=== PATIENT | female | born 1960 | race Caucasian/White ===

== ENCOUNTER 2017-10-23 05:52 | Inpatient (IN) | payer BC ==
[~2017-10-23] VITALS: Ht 154.9 cm; Wt 66.4 kg
[~2017-10-23 05:52] MED LIST: PREVACID30 M2 PO; SYNTHROID112 MCG PO; ULTRAM50 M1 PO; ZOFRAN ODT8 MG PO
--- NOTE | 2017-10-23 06:05 | NUR ---
PT AMBULATED TO ROOM 9 AND TRIAGED.
--- NOTE | 2017-10-23 06:06 | NUR ---
PT. TO ROOM 9 WITH C/O HAVING LLQ PAIN STARTING APPROX. 1 WEEK AGO. ABD. SOFT WITH + BOWEL SOUNDS. PT. STATES SHE HASM A PMH OF DIVERTICULOSIS.
--- NOTE | 2017-10-23 06:43 | NUR ---
IVF, IV ANTIEMETIC AND IV PAIN MED GIVEN PER MD ORDER.
[2017-10-23 06:49] LABS: HEMATOCRIT 33.5 % (37.0-47.0); HEMOGLOBIN 11.1 g/dl (12.0-16.0); IMMATURE GRANULOCYTES 0.4 % (0.0-1.0); MEAN CELL VOLUME 93.3 fL CALC (80.0-100.0); MEAN CORPUSCULAR HGB 30.9 pG CALC (26.0-32.0); MEAN CORPUSCULAR HGB CONC 33.1 g/L CALC (32.0-36.0); NEUT# 6.32 thou/uL (2.00-7.15); RED BLOOD COUNT 3.59 mill/uL (4.20-5.60)
[2017-10-23 06:59] LABS: ALBUMIN 4.5 g/dL (3.2-5.0); ALKALINE PHOSPHATASE 104 u/l (38-126); AMYLASE 51 u/l (30-110); ANION GAP 17 (6-22 (CALC)); BILIRUBIN, TOTAL 0.2 mg/dL (0.0-1.4); BUN 7 mg/dL (7-17); BUN/CREATININE RATIO 10 (12-20 (CALC)); CARBON DIOXIDE 26 mmol/l (22-30); CHLORIDE 107 mmol/l (95-108); CREATININE 0.7 mg/dL (0.5-1.0); GFR > 60 ML/MIN (>=60 (CALC)); GFR FOR AFR.AMER. > 60 ML/MIN (>=60 (CALC)); LIPASE 58 u/l (23-300); POTASSIUM 4.3 mmol/l (3.5-5.1); SGOT/AST 59 u/l (14-36); SGPT/ALT 59 u/l (9-52); SODIUM 146 mmol/l (137-146); TOTAL PROTEIN 7.3 g/dL (6.3-8.2)
--- NOTE | 2017-10-23 07:10 | NUR ---
REPORT GIVEN TO LARRY HOLMAN.
--- NOTE | 2017-10-23 08:00 | NUR ---
PT PAIN CONTINUES TO BE 6/10, IV FLUIDS INFUSING WITH NO DIFFICULTY. PT AWARE OF PLAN OF CARE AND WAIT TIME. CALL SANCHEZ WITHIN REACH.
[2017-10-23 08:26] LABS: URINE BILIRUBIN - DIPSTICK NEGATIVE (NEGATIVE); URINE BLOOD DIPSTICK NEGATIVE (NEGATIVE); URINE COLOR YELLOW; URINE GLUCOSE - DIPSTICK NEGATIVE (NEGATIVE); URINE KETONE NEGATIVE (NEGATIVE); URINE LEUK ESTERASE NEGATIVE (NEGATIVE); URINE NITRITE - DIPSTICK NEGATIVE (Negative); URINE PROTEIN - DIPSTICK NEGATIVE (NEG-TRACE); URINE UROBILINOGEN - DIPSTICK 0.2 E.U./dL (0.2)
[2017-10-23 08:31] LABS: URINE CLARITY CLEAR
--- NOTE | 2017-10-23 09:13 | NUR ---
SBAR PRINTED TO FLOOR
--- NOTE | 2017-10-23 09:41 | NUR ---
IV CIPRO INFUSING WITH NO DIFFICULTY. PT AWARE OF PENDING ADMISSION AND WAIT TIME. CALL SANCHEZ WITHIN REACH.
--- NOTE | 2017-10-23 09:55 | NUR ---
MS NURSE IN PATIENTS ROOM, WILL CALL BACK FOR REPORT.
--- NOTE | 2017-10-23 10:16 | NUR ---
MS NURSE STILL UNABLE TO TAKE REPORT AT THIS TIME.
--- NOTE | 2017-10-23 10:26 | NUR ---
REPORT CALLED TO RIVER AGUERO.
--- NOTE | 2017-10-23 10:35 | NUR ---
Admission Note Report Given to: LISAANDREAVero Transported by: X Wheelchair Stretcher Transported with: X Nurse Transporter X Patent IV O2 Wax Pumper
--- NOTE | 2017-10-23 10:38 | NUR ---
REPORT RECEIVED FROM ALEYDA IN ED, PT ARRIVED ON UNIT VIA STRETCHER @ [phone], ALERT AND ORIENTED, TRANSFERRED TO BED. ORIENTED TO ROOM AND CALL SANCHEZ AND SETTLED IN BED. C/O NAUSEA AND PAIN, CONCERNS ADDRESSED, WILL CONTINUE TO MONITOR.
[2017-10-23 11:00] VITALS: BP 92/56
[2017-10-23 16:00] VITALS: BP 102/59
--- NOTE | 2017-10-23 19:27 | NUR ---
BEDSIDE REPORT RECEIVED FROM RIVER LIN. PT RESTING IN BED WITH ICE PACK APPLIED TO HEAD FOR HEADAHCE. RESPIRATIONS EVEN AND UNLABORED ON ROOM AIR. PLAN OF CARE DISCUSSED. PT ENCOURAGED TO VERBALIZE CONCERNS. STATES UNDERSTANDING. HAS QUESTIONS ABOUT CHANGES IN MEDICATION INCLUDING PHENERGAN AND ORAL ANALGESICS. SAFETY MEASURES IN PLACE. CALL LIGHT WITHIN REACH.
[2017-10-23 20:15] VITALS: BP 97/63
--- NOTE | 2017-10-24 | NUR ---
PT RESTING IN BED WITH EYES CLOSED; NO SIGNS OF DISTRESS. AWAKENS TO VERBAL STIMULI. DECLINES PAIN AND NAUSEA AT THIS TIME. REQUESTS ONLY AN EXTRA BLANKET. IV FLUIDS INFUSING WITHOUT DIFFICULTY; IV SITE APPEARS HEALTHY. SAFETY MEASURES IN PLACE. CALL LIGHT WITHIN REACH.
--- NOTE | 2017-10-24 04:42 | NUR ---
PT HAS SLEPT THROUGHOUT THE NIGHT WITH NO FURTHER C/O PAIN OR NAUSEA. NO ACUTE CHANGES IN CONDITION NOTED. IV FLUIDS INFUSING WITHOUT DIFFICULTY AND IV ABT ADMINISTERED WITH NO ADVERSE REACTIONS. PT USES CALL LIGHT PRN FOR ASSISTANCE TO BATHROOM. SAFETY MEASURES IN PLACE. CALL LIGHT WITHIN REACH.
[2017-10-24 07:40] VITALS: BP 98/55
--- NOTE | 2017-10-24 08:00 | NUR ---
ASSESSMENT IS COMPLETD: IV SITE IS FREE FROM REDNESS OR EDEMA. BREATH SOUNDS ARE CLEAR,BILATERALLY, NO C/O SOB, HR IS REG,PULSES ARE STRONG X4,ABD IS SOFT WITH ACTIVE BS, ONLY C/O HEADACHE THIS AM.
--- NOTE | 2017-10-24 12:20 | NUR ---
PT IS RELAXING IN BED WITH NO DISRESS NOTED. IV SITE IS FREE FROM REDNESS OR EDEMA.
[2017-10-24] MEDS ORDERED: TRAMADOL HCL50 MG PO (12:58)
[2017-10-24] MEDS ORDERED: METRONIDAZOL500 MG PO (12:58)
[2017-10-24] MEDS ORDERED: FLORASTOR250 M1 PO (12:58)
[2017-10-24] MEDS ORDERED: CIPROFLOXACN500 MG PO (12:58)
[2017-10-24] MEDS ORDERED: ZOFRAN ODT4 MG PO (14:45)
--- NOTE | 2017-10-24 14:51 | NUR ---
Spoke to pt for discharge med education. Pt c/o nausea. Spoke to Cathy, she will include zofran in discharge orders. Reviewed all medications including dosage regimens, timing, and purpose. Pt expressed understanding. Pt had no questions or concerns.
--- NOTE | 2017-10-24 16:20 | NUR ---
PT IS RELAXING IN BED WITH NO DISTRESS NOTED. IV SITE IS FREE FROM REDNESS OR EDEMA.
[2017-10-24 16:41] VITALS: BP 102/54
--- NOTE | 2017-10-24 18:52 | NUR ---
IV SITE DISCONTIENUD CATHETER INTACT. NO REDNESS OR EDEMA. DISCHARGE INSTRUCTIONS GIVEN AND VERBALIZED UNDERSTANDING. FAMILY TOOK SCRIPTS AND DROPPED OFF. Discharge instructions given. Patient verbalizes understanding of same. Discharged in stable condition via Ambulatory to Home with family. All belongings sent with pt.
== END 2017-10-24 19:00 | disposition home or self-care (01) | DRG 392 ==
LOC: ED 05:52 → ED-I 08:24 → ED 09:06 → MS2 09:07
PROVIDERS: Emergency Medicine; ADMIT Internal Medicine; ATTEND Internal Medicine
DX: K57.32 Diverticulitis of large intestine without perforation or abscess without bleeding (principal); E83.42 Hypomagnesemia; E03.9 Hypothyroidism, unspecified; G43.909 Migraine, unspecified, not intractable, without status migrainosus
CPT/HCPCS: Q9967

== ENCOUNTER 2020-04-15 21:00 | Emergency (ER) | payer BC ==
[~2020-04-15] VITALS: Ht 154.9 cm; Wt 68.0 kg
[~2020-04-15 21:00] MED LIST changes: +CIPROFLOXACN500 MG PO; +FLORASTOR250 M1 PO; +METRONIDAZOL500 MG PO; +TRAMADOL HCL50 MG PO; +ZOFRAN ODT4 MG PO
[2020-04-15 21:57] LABS: HEMATOCRIT 33.9 % (37.0-47.0); HEMOGLOBIN 11.1 g/dl (12.0-16.0); IMMATURE GRANULOCYTES 0.3 % (0.0-5.0); MEAN CELL VOLUME 92.9 fL CALC (80.0-100.0); MEAN CORPUSCULAR HGB 30.4 pG CALC (26.0-32.0); MEAN CORPUSCULAR HGB CONC 32.7 g/dL CAL (32.0-36.0); NEUT# 7.73 thou/uL (2.00-7.15); RED BLOOD COUNT 3.65 mill/uL (4.20-5.60); RED CELL DISTRI WIDTH 12.9 % (11.5-15.5)
[2020-04-15 21:58] LABS: URINE BILIRUBIN - DIPSTICK NEGATIVE (NEGATIVE); URINE BLOOD DIPSTICK TRACE-INTACT (NEGATIVE); URINE COLOR YELLOW; URINE GLUCOSE - DIPSTICK NEGATIVE (NEGATIVE); URINE KETONE NEGATIVE (NEGATIVE); URINE LEUK ESTERASE NEGATIVE (NEGATIVE); URINE NITRITE - DIPSTICK NEGATIVE (Negative); URINE PROTEIN - DIPSTICK NEGATIVE (NEG-TRACE); URINE UROBILINOGEN - DIPSTICK 0.2 E.U./dL (0.2)
[2020-04-15 22:10] LABS: ALBUMIN 4.2 g/dL (3.2-5.0); ALKALINE PHOSPHATASE 106 u/l (38-126); AMYLASE 57 u/l (30-110); ANION GAP 10 (6-22 (CALC)); BUN 10 mg/dL (7-17); BUN/CREATININE RATIO 15 (12-20 (CALC)); CARBON DIOXIDE 26 mmol/l (22-30); CHLORIDE 106 mmol/l (95-108); CREATININE 0.7 mg/dL (0.5-1.0); GFR > 60 ML/MIN (>=60 (CALC)); GFR FOR AFR.AMER. > 60 ML/MIN (>=60 (CALC)); LIPASE 46 u/l (23-300); POTASSIUM 3.7 mmol/l (3.5-5.1); SGOT/AST 37 u/l (14-36); SODIUM 139 mmol/l (137-146); TOTAL PROTEIN 7.1 g/dL (6.3-8.2)
[2020-04-15 22:11] LABS: BILIRUBIN, TOTAL 0.4 mg/dL (0.0-1.4)
[2020-04-15 23:11] VITALS: BP 121/69
[2020-04-15] MEDS ORDERED: MAGNESIUM296 ML/BTL PO (23:26)
[2020-04-15] MEDS ORDERED: MIRALAX3350 N1 PO (23:26)
== END 2020-04-15 23:40 | disposition home or self-care (01) | DRG 392 ==
LOC: ED 21:00
PROVIDERS: Family Medicine
DX: K59.00 Constipation, unspecified (principal)

== ENCOUNTER 2021-05-01 21:42 | Emergency (ER) | payer BC ==
[~2021-05-01] VITALS: Ht 154.9 cm; Wt 68.0 kg
[~2021-05-01 21:42] MED LIST changes: +MAGNESIUM296 ML/BTL PO; +MIRALAX3350 N1 PO
[2021-05-02 00:17] LABS: ALBUMIN 4.6 g/dL (3.2-5.0); ALKALINE PHOSPHATASE 82 u/l (38-126); AMYLASE 62 u/l (30-110); ANION GAP 11 (6-22 (CALC)); BILIRUBIN, TOTAL 0.5 mg/dL (0.0-1.4); BUN 18 mg/dL (7-17); BUN/CREATININE RATIO 22 (12-20 (CALC)); CHLORIDE 100 mmol/l (95-108); CREATININE 0.8 mg/dL (0.5-1.0); GFR > 60 ML/MIN (>=60 (CALC)); GFR FOR AFR.AMER. > 60 ML/MIN (>=60 (CALC)); SGOT/AST 23 u/l (14-36); SODIUM 140 mmol/l (137-146); TOTAL PROTEIN 7.6 g/dL (6.3-8.2)
[2021-05-02 00:18] LABS: D-DIMER 0.33 mg/L (0.19-0.60)
[2021-05-02 00:20] LABS: HEMATOCRIT 42.2 % (37.0-47.0); HEMOGLOBIN 13.6 g/dl (12.0-16.0); IMMATURE GRANULOCYTES 0.6 % (0.0-5.0); MEAN CELL VOLUME 95.5 fL CALC (80.0-100.0); MEAN CORPUSCULAR HGB 30.8 pG CALC (26.0-32.0); MEAN CORPUSCULAR HGB CONC 32.2 g/dL CAL (32.0-36.0); NEUT# 10.12 thou/uL (2.00-7.15); RED BLOOD COUNT 4.42 mill/uL (4.20-5.60); RED CELL DISTRI WIDTH 12.9 % (11.5-15.5)
[2021-05-02 00:24] LABS: CARBON DIOXIDE 33 mmol/l (22-30)
[2021-05-02 00:29] LABS: MYOGLOBIN 26 ng/mL (0 - 62)
[2021-05-02 00:32] LABS: ACT PARTIAL THROMBO TIME 20.4 SECONDS (20.0-32.5); INTERNATIONAL NORMALIZED RATIO 0.9 RATIO (0.7-1.3); PROTHROMBIN TIME 9.4 SECONDS (9.0-12.5)
[2021-05-02 01:36] VITALS: BP 120/75
== END 2021-05-02 01:38 | disposition home or self-care (01) | DRG 179 ==
LOC: ED 21:42
PROVIDERS: Family Medicine
DX: U07.1 COVID-19 (principal)

== ENCOUNTER 2022-05-16 13:30 | Emergency (ER) | payer BC ==
[~2022-05-16] VITALS: Ht 154.9 cm; Wt 68.1 kg
[2022-05-16 13:58] VITALS: BP 149/70
[2022-05-16 14:00] VITALS: BP 156/70
[2022-05-16 14:31] VITALS: BP 120/80
[2022-05-16 15:03] LABS: HEMATOCRIT 37.1 % (37.0-47.0); HEMOGLOBIN 12.6 g/dl (12.0-16.0); IMMATURE GRANULOCYTES 0.1 % (0.0-5.0); MEAN CELL VOLUME 90.9 fL CALC (80.0-100.0); MEAN CORPUSCULAR HGB 30.9 pG CALC (26.0-32.0); NEUT# 7.57 thou/uL (2.00-7.15); RED BLOOD COUNT 4.08 mill/uL (4.20-5.60); RED CELL DISTRI WIDTH 13.2 % (11.5-15.5)
[2022-05-16 15:09] LABS: GFR FOR AFR.AMER. > 60 ML/MIN (>=60 (CALC)); GFR OTHER RACES > 60 ML/MIN (>=60 (CALC))
[2022-05-16 15:24] LABS: ALBUMIN 4.7 g/dL (3.2-5.0); ALKALINE PHOSPHATASE 95 u/l (38-126); ANION GAP 17 (6-22 (CALC)); BILIRUBIN, TOTAL 0.5 mg/dL (0.0-1.4); BUN 10 mg/dL (7-17); BUN/CREATININE RATIO 17 (12-20 (CALC)); CHLORIDE 104 mmol/l (95-108); CREATININE 0.6 mg/dL (0.5-1.0); GFR FOR AFR.AMER. > 60 ML/MIN (>=60 (CALC)); GFR OTHER RACES > 60 ML/MIN (>=60 (CALC)); LIPASE 44 u/l (23-300); SGOT/AST 24 u/l (14-36); SODIUM 143 mmol/l (137-146); TOTAL PROTEIN 7.2 g/dL (6.3-8.2)
[2022-05-16 15:27] LABS: CARBON DIOXIDE 26 mmol/l (22-30)
[2022-05-16] MEDS ORDERED: ALLOPURINOL100 MG PO (16:36)
[2022-05-16] MEDS ORDERED: ATENOLOL50 MG PO (16:37)
[2022-05-16] MEDS ORDERED: ASPIRIN81 MG PO (16:37)
[2022-05-16] MEDS ORDERED: CALCITRIOL0.25 MC1 PO (16:38)
[2022-05-16] MEDS ORDERED: FERROUS SULF325 M3 PO (16:39)
[2022-05-16] MEDS ORDERED: FLUOXETINE20 MG PO (16:39)
[2022-05-16] MEDS ORDERED: VITAMIN D7 XX (16:39)
[2022-05-16] MEDS ORDERED: HYDROXYCHLOR200 M1 PO (16:40)
[2022-05-16] MEDS ORDERED: OMEGA 31000 MG PO (16:40)
[2022-05-16] MEDS ORDERED: LOSARTAN POTASS25 MG PO (16:40)
[2022-05-16] MEDS ORDERED: ROSUVASTATIN CALCIUM (16:43)
[2022-05-16] MEDS ORDERED: B121000 MC1 (16:44)
[2022-05-16] MEDS ORDERED: SPIRIVA RE2.5 MCG/AC (16:44)
[2022-05-16] MEDS ORDERED: WIXELA INHUB 101 AER (16:45)
[2022-05-16] MEDS ORDERED: METRONIDAZOLE500 MG PO (17:42)
[2022-05-16] MEDS ORDERED: CIPROFLOXACN500 MG PO (17:42)
[2022-05-16] MEDS ORDERED: ZOFRAN4 MG/TAB PO (17:42)
[2022-05-16 17:59] VITALS: BP 120/80
== END 2022-05-16 17:59 | disposition home or self-care (01) | DRG 392 ==
LOC: ED 13:30
PROVIDERS: Family Medicine
DX: K57.32 Diverticulitis of large intestine without perforation or abscess without bleeding (principal); I10 Essential (primary) hypertension
CPT/HCPCS: Q9967